=== PATIENT | female | born 1975 | race Two or more races ===

== ENCOUNTER 2023-12-24 18:13 | Emergency (ER) | payer OTHER ==
[~2023-12-24] VITALS: Ht 165.1 cm; Wt 148.4 kg
[2023-12-24 18:13] VITALS: BP 152/78; PULSE 83; RESP 18; O2SAT 96
[2023-12-24 18:57] LABS: Urine Bacteria FEW /hpf (None Seen); Urine Blood Negative /uL (Negative); Urine Budding Yeast OCCASIONAL /hpf (None Seen); Urine Clarity Turbid (Clear); Urine Color Yellow (Yellow); Urine Mucus FEW (None Seen); Urine Protein, UAD 1+ (Negative); Urine Specific Gravity 1.024 (1.001-1.035); Urine Urobilinogen Normal (Negative); Urine WBC 117 /hpf (0 - 5); Urine pH 5.5 (5.0-9.0)
[2023-12-24] MEDS ORDERED: BACDST PO (20:11)
[2023-12-24] MEDS ORDERED: IBUP-1456 PO (20:11)
[2023-12-24] MEDS: LIDOCAINE 1% HCL (LOCAL ANESTH.) INJ 20ML MDV IJ ONE (20:33)
[2023-12-24] MEDS: cefTRIAXone SOD 1,000 MG VL IM ONE (20:36)
[2023-12-24] MEDS: KETOROLAC TROMETH 60MG/2ML VIAL IM ONE (20:37)
== END 2023-12-24 21:14 | disposition home or self-care (01) ==
LOC: ER 18:13
DX: N39.0 Urinary tract infection, site not specified (principal); N83.202 Unspecified ovarian cyst, left side; Z79.899 Other long term (current) drug therapy; Z88.0 Allergy status to penicillin; Z88.5 Allergy status to narcotic agent
CPT/HCPCS: 76856; 81001; 81025; 96372; 99285; J0696; J1885; J2003